=== PATIENT | female | born 1960 | race Caucasian/White ===

== ENCOUNTER 2017-08-17 09:56 | Observation (INO) | payer SELFPAY ==
--- NOTE | 2017-08-17 11:02 | C.PDOC ---
History Of Present Illness 56-year-old female, presents to the emergency department complaining of chest pain that started on 07/29. Patient states she had a few more episodes, and was seen by clinic, where they started workup. Pt returned today and clinic sent her to ED for further evaluation. Denies any shortness of breath, nausea/ vomiting, diarrhea, or any other associated symptoms. No other complaints at this time. Time Seen by Provider: 08/17/17 10:22 Chief Complaint (Nursing): Chest Pain History Per: Patient History/Exam Limitations: no limitations Onset/Duration Of Symptoms: Waxing/Waning Past Medical History Reviewed: Historical Data, Nursing Documentation, Vital Signs Vital Signs: Last Vital Signs Temp 97.6 F 08/17/17 16:15 Pulse 68 08/17/17 16:15 Resp 20 08/17/17 16:15 BP 101/65 08/17/17 16:15 Pulse Ox 96 08/17/17 16:15 Family History: States: No Known Family Hx - Social History Hx Alcohol Use: No Hx Substance Use: No - Immunization History Hx Tetanus Toxoid Vaccination: No Hx Influenza Vaccination: No Review Of Systems Constitutional: Negative for: Fever, Chills Cardiovascular: Positive for: Chest Pain. Negative for: Palpitations Respiratory: Negative for: Shortness of Breath Gastrointestinal: Negative for: Vomiting Musculoskeletal: Negative for: Neck Pain, Arm Pain, Back Pain Skin: Negative for: Rash Neurological: Negative for: Weakness, Numbness, Headache, Dizziness Physical Exam - Physical Exam Appears: Well, Non-toxic, No Acute Distress Skin: Normal Color, Warm, Dry, No Rash Head: Atraumatic, Normacephalic Eye(s): bilateral: Normal Inspection, PERRL, EOMI Nose: Normal Oral Mucosa: Moist Lips: Normal Appearing Neck: Normal ROM Cardiovascular: Rhythm Regular, No Murmur Respiratory: Normal Breath Sounds, No Accessory Muscle Use Gastrointestinal/Abdominal: Soft, No Tenderness Back: Normal Inspection Extremity: Normal ROM, No Deformity, No Swelling Neurological/Psych: Oriented x3, Normal Speech ED Course And Treatment - Laboratory Results Result Diagrams: 08/17/17 11:32 08/17/17 11:32 ECG: Interpreted By Me, Viewed By Me ECG Rhythm: Sinus Rhythm ECG Interpretation: No Acute Changes Rate From EC O2 Sat by Pulse Oximetry: 99 (RA) Pulse Ox Interpretation: Normal - Other Rad CXR X-Ray: Viewed By Me, Read By Radiologist Interpretation: Accession No. : [id number]. Patient Name / ID : RANDI MALDONADO / [id number]. Exam Date : 08/17/2017 11:10:25 ( Approved ). Study Comment : Sex / Age : F / 56Y. Creator : Laisha Gannon MD. Dictator : Laisha Gannon MD. Manager Media : Manager Filter : Laisha Gannon MD. Approver2 : Report Date : 08/17/2017 11:39:38. My Comment : . PROCEDURE: CHEST RADIOGRAPH, 1 VIEW. HISTORY: Chest pain. COMPARISON: None available. FINDINGS: LUNGS: The lungs are well inflated and clear. PLEURA: No pneumothorax or pleural fluid seen. CARDIOVASCULAR: Normal. OSSEOUS STRUCTURES: No significant abnormalities. VISUALIZED UPPER ABDOMEN: Normal. OTHER FINDINGS: None. IMPRESSION: No active pulmonary disease. Progress Note: Case was d/w who accepted patient to tele observation. Disposition - Disposition Disposition: HOSPITALIZED Disposition Time: 12:48 Condition: GOOD - Clinical Impression Clinical Impression: Chest pain - Scribe Statement The provider has reviewed the documentation as recorded by the Scribe (Violet Tse) All medical record entries made by the Scribe were at my direction and personally dictated by me. I have reviewed the chart and agree that the record accurately reflects my personal performance of the history, physical exam, medical decision making, and the department course for this patient. I have also personally directed, reviewed, and agree with the discharge instructions and disposition. Decision To Admit - Pt Status Changed To: Hospital Disposition Of: Observation - . Bed Request Type: Telemetry Admitting Physician: Kendall Pro Patient Diagnosis: Chest pain
[2017-08-17 11:37] LABS: BASO % 0.8 % (0.0-2.0); EOS # 0.1 K/uL (0.0-0.7); EOS % 1.3 % (0.0-4.0); HEMOGLOBIN 12.5 g/dL (11.0-16.0); LYMPH # 1.4 K/uL (1.0-4.3); LYMPH % 22.6 % (20.0-40.0); MEAN CELL VOLUME 79.7 fL (81.0-99.0); MEAN CORPUSCULAR HGB CONC 33.9 g/dL (33.0-37.0); MEAN PLATELET VOLUME 7.7 fL (7.2-11.7); MONO # 0.4 K/uL (0.0-0.8); MONO % 6.3 % (0.0-10.0); NEUT # 4.3 K/uL (1.8-7.0); RBC 4.65 Mil/uL (3.80-5.20); RED CELL DISTRIBUTION WIDTH 16.7 % (11.5-14.5); WHITE BLOOD COUNT 6.2 K/uL (4.8-10.8)
--- NOTE | 2017-08-17 11:41 | RAD ---
PROCEDURE: CHEST RADIOGRAPH, 1 VIEW HISTORY: Chest pain COMPARISON: None available. FINDINGS: LUNGS: The lungs are well inflated and clear. PLEURA: No pneumothorax or pleural fluid seen. CARDIOVASCULAR: Normal. OSSEOUS STRUCTURES: No significant abnormalities. VISUALIZED UPPER ABDOMEN: Normal. OTHER FINDINGS: None. IMPRESSION: No active pulmonary disease.
[2017-08-17 11:45] LABS: INR 1.2; PROTHROMBIN TIME 13.2 SECONDS (9.7-12.2)
[2017-08-17 11:46] LABS: SQUAMOUS EPITHIAL 3 /hpf (0-5); URINE BILIRUBIN NEGATIVE (NEGATIVE); URINE BLOOD 1+ (NEGATIVE); URINE CLARITY Clear (Clear); URINE COLOR Straw (YELLOW); URINE GLUCOSE (UA) NORMAL (Normal); URINE LEUKOCYTE ESTERASE 1+ Leu/uL (Negative); URINE PROTEIN NEGATIVE (NEGATIVE); URINE UROBILINOGEN NORMAL mg/dL (0.2-1.0)
[2017-08-17 11:50] LABS: ALB/GLOB RATIO 1.2 (1.0-2.1); ALBUMIN 4.2 g/dL (3.5-5.0); ALT/SGPT 30 U/L (9-52); AST/SGOT 23 U/L (14-36); BLOOD UREA NITROGEN 12 mg/dL (7-17); CALCIUM 9.1 mg/dl (8.6-10.4); GFR AFRICAN-AMERICAN > 60; GFR NON-AFRICAN AMERICAN > 60
[2017-08-17 12:01] LABS: CK-MB 0.89 ng/mL (0.0-3.38)
--- NOTE | 2017-08-17 13:26 | CP.PCM.HP ---
<Slime Yee - Last Filed: 08/17/17 14:09> History of Present Illness - History of Present Illness History of Present Illness: CC - "Chest pain" HPI - 56 year old female with a past medical history of cervical radiculopathy and hemorrhoids presents to the ED today complaining for chest pain. She went to her appointment this morning at the [facility] and was stated she had chest pain so she was sent up to the ED. This chest pain is like a "muscle pain" located in the center of her chest and started around 8AM this morning. She denies palpitations but admits to "muscle spasms". Does not radiate. It comes and goes. Patient has had this pain before. She rates it a 7/10. She feels this pain when she gets dressed in the morning or when she lifts boxes. The patient did not take any medications with this pain. She was given 325mg of PO aspirin in the ED. Patient denies associated N/V, diaphoresis, or shortness of breath. fever/chills, headaches, dizziness, changes in vision, abd pain, urinary complaints, abnormal bowel movements, leg edema. Of note the patient had MRI for cervical radiculopathy. Colonoscopy 2017 - hemorrhoids PAP - not since child Mammogram - 5 years ago PMHx - cervical radiculopathy, hemorrhoids Meds - Ibuprofen prn pain, multivitamin Allergies - ampicillin ? per EMR), pollen Surg - 2 C sections (27, and 28 years ago) no complications Famhx - one of dad's relatives had a stroke, mother diabetes, dad colon cancer, no fam hx of cardiac disease or OR Social - Denies tobacco/drug use, drinks occasionally. Lifts boxes and books for work. From [employer] weigh [employer] - menopause, 2 children PMD - Dr. Richmond, [facility] at [facility] Advanced Directives - none Proxy - Ricky Kwong (son) Code Status - Full code Present on Admission - Present on Admission Any Indicators Present on Admission: No Review of Systems - Constitutional Constitutional: absent: Chills, Fever - EENT Eyes: absent: Blurred Vision, Change in Vision - Cardiovascular Cardiovascular: Chest Pain. absent: Chest Pain at Rest, Irregular Heart Rhythm , Leg Edema, Palpitations, Pedal Edema, Syncope Additional comments: Pain reproduicble on palpation - Respiratory Respiratory: absent: Cough, Dyspnea, Dyspnea on Exertion - Gastrointestinal Gastrointestinal: Constipation. absent: Abdominal Pain, Diarrhea, Nausea, Vomiting - Genitourinary Genitourinary: absent: Change in Urinary Stream, Difficulty Urinating - Musculoskeletal Musculoskeletal: absent: Neck Pain, Numbness, Tingling Past Patient History - Past Social History Smoking Status: Never Smoked - PSYCHIATRIC Hx Substance Use: No - SURGICAL HISTORY Hx Surgeries: Yes Hx Section: Yes (x2) - ANESTHESIA Hx Anesthesia: No Hx Anesthesia Reactions: No Meds Allergies/Adverse Reactions: Allergies Allergy/AdvReac Type Severity Reaction Status Date / Time ampicillin Allergy RASH Verified 08/17/17 09:59 Physical Exam - Constitutional Appears: Non-toxic, No Acute Distress - Head Exam Head Exam: ATRAUMATIC, NORMAL INSPECTION - Eye Exam Eye Exam: EOMI, PERRL Pupil Exam: NORMAL ACCOMODATION - ENT Exam ENT Exam: Mucous Membranes Moist - Respiratory Exam Respiratory Exam: Clear to Auscultation Bilateral, NORMAL BREATHING PATTERN. absent: Accessory Muscle Use, Wheezes, Respiratory Distress - Cardiovascular Exam Cardiovascular Exam: REGULAR RHYTHM, +S1, +S2 Additional comments: pain reproducible on exam - GI/Abdominal Exam GI & Abdominal Exam: Normal Bowel Sounds, Soft. absent: Distended, Firm, Guarding, Tenderness - Extremities Exam Extremities exam: Positive for: normal inspection - Back Exam Back exam: NORMAL INSPECTION. absent: CVA tenderness (L), CVA tenderness (R), paraspinal tenderness - Neurological Exam Neurological exam: Alert, CN II-XII Intact, Normal Gait, Oriented x3 - Psychiatric Exam Psychiatric exam: Normal Affect, Normal Mood - Skin Skin Exam: Dry, Intact, Normal Color Results - Vital Signs Recent Vital Signs: Last Vital Signs Temp 97.9 F 08/17/17 09:57 Pulse 71 08/17/17 12:53 Resp 16 08/17/17 12:53 BP 104/45 L 08/17/17 12:53 Pulse Ox 98 08/17/17 12:53 - Labs Result Diagrams: 08/17/17 11:32 08/17/17 11:32 Labs: Laboratory Results - last 24 hr 08/17/17 08/17/17 08/17/17 11:32 11:32 11:32 WBC 6.2 RBC 4.65 Hgb 12.5 Hct 37.0 MCV 79.7 L MCH 27.0 MCHC 33.9 RDW 16.7 H Plt Count 306 MPV 7.7 Neut % (Auto) 69.0 Lymph % (Auto) 22.6 Vernon % (Auto) 6.3 Eos % (Auto) 1.3 Baso % (Auto) 0.8 Neut # (Auto) 4.3 Lymph # (Auto) 1.4 Vernon # (Auto) 0.4 Eos # (Auto) 0.1 Baso # (Auto) 0.0 PT 13.2 H INR 1.2 APTT 36 H Sodium 144 Potassium 4.0 Chloride 105 Carbon Dioxide 29 Anion Gap 14 BUN 12 Creatinine 0.7 Est GFR ( Amer) > 60 Est GFR (Non-Af Amer) > 60 Random Glucose 109 H Calcium 9.1 Total Bilirubin 0.4 AST 23 ALT 30 Alkaline Phosphatase 93 Total Creatine Kinase 86 CK-MB (Mass) 0.89 Troponin I < 0.0120 Total Protein 7.6 Albumin 4.2 Globulin 3.4 Albumin/Globulin Ratio 1.2 Urine Color Urine Clarity Urine pH Ur Specific [place] Urine Protein Urine Glucose (UA) Urine Ketones Urine Blood Urine Nitrate Urine Bilirubin Urine Urobilinogen Ur Leukocyte Esterase Urine WBC (Auto) Urine RBC (Auto) Ur Squamous Epith Cells 08/17/17 11:39 WBC RBC Hgb Hct MCV MCH MCHC RDW Plt Count MPV Neut % (Auto) Lymph % (Auto) Vernon % (Auto) Eos % (Auto) Baso % (Auto) Neut # (Auto) Lymph # (Auto) Vernon # (Auto) Eos # (Auto) Baso # (Auto) PT INR APTT Sodium Potassium Chloride Carbon Dioxide Anion Gap BUN Creatinine Est GFR ( Amer) Est GFR (Non-Af Amer) Random Glucose Calcium Total Bilirubin AST ALT Alkaline Phosphatase Total Creatine Kinase CK-MB (Mass) Troponin I Total Protein Albumin Globulin Albumin/Globulin Ratio Urine Color Straw Urine Clarity Clear Urine pH 7.0 Ur Specific [place] 1.005 Urine Protein Negative Urine Glucose (UA) Normal Urine Ketones Negative Urine Blood 1+ H Urine Nitrate Negative Urine Bilirubin Negative Urine Urobilinogen Normal Ur Leukocyte Esterase 1+ H Urine WBC (Auto) 5 Urine RBC (Auto) 1 Ur Squamous Epith Cells 3 Assessment & Plan - Assessment and Plan (Free Text) Assessment: Chest pain 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 First troponin negative, will trend 1 more with EKG EKG - NSR, no acute changes - normal f/u TSH/free T4 f/u echo -results to be followed outpatient Chest X ray - no cardiomegaly, no active disease Was given ASA 325 mg in ED Ibuprofen prn pain Cervical radiculopathy had MRI done Would rec PT outpatient Impaired glucose tolerance Hemoglobin HbA1c 6.3 Diet and lifestyle modifications Hyperlipidemia Diet and lifestyle modifications Prophylactic Measures SCDs GI - not indicated Multivitamin Hearth healthy/consistent carb diet Dispo -> Will discharge after second troponin/ekg/TSH after 5PM (if normal) <Kendall Pro - Last Filed: 08/17/17 22:18> Results - Vital Signs Recent Vital Signs: Last Vital Signs Temp 97.6 F 08/17/17 16:15 Pulse 68 08/17/17 16:15 Resp 20 08/17/17 16:15 BP 101/65 08/17/17 16:15 Pulse Ox 99 08/17/17 18:59 - Labs Result Diagrams: 08/17/17 11:32 08/17/17 11:32 Labs: Laboratory Results - last 24 hr 08/17/17 08/17/17 08/17/17 11:32 11:32 11:32 WBC 6.2 RBC 4.65 Hgb 12.5 Hct 37.0 MCV 79.7 L MCH 27.0 MCHC 33.9 RDW 16.7 H Plt Count 306 MPV 7.7 Neut % (Auto) 69.0 Lymph % (Auto) 22.6 Vernon % (Auto) 6.3 Eos % (Auto) 1.3 Baso % (Auto) 0.8 Neut # (Auto) 4.3 Lymph # (Auto) 1.4 Vernon # (Auto) 0.4 Eos # (Auto) 0.1 Baso # (Auto) 0.0 PT 13.2 H INR 1.2 APTT 36 H Sodium 144 Potassium 4.0 Chloride 105 Carbon Dioxide 29 Anion Gap 14 BUN 12 Creatinine 0.7 Est GFR ( Amer) > 60 Est GFR (Non-Af Amer) > 60 Random Glucose 109 H Calcium 9.1 Total Bilirubin 0.4 AST 23 ALT 30 Alkaline Phosphatase 93 Total Creatine Kinase 86 CK-MB (Mass) 0.89 Troponin I < 0.0120 Total Protein 7.6 Albumin 4.2 Globulin 3.4 Albumin/Globulin Ratio 1.2 25-OH Vitamin D Total Free T4 TSH 3rd Generation Urine Color Urine Clarity Urine pH Ur Specific [place] Urine Protein Urine Glucose (UA) Urine Ketones Urine Blood Urine Nitrate Urine Bilirubin Urine Urobilinogen Ur Leukocyte Esterase Urine WBC (Auto) Urine RBC (Auto) Ur Squamous Epith Cells 08/17/17 08/17/17 08/17/17 11:39 17:02 17:02 WBC RBC Hgb Hct MCV MCH MCHC RDW Plt Count MPV Neut % (Auto) Lymph % (Auto) [place] % (Auto) Eos % (Auto) Baso % (Auto) Neut # (Auto) Lymph # (Auto) Vernon # (Auto) Eos # (Auto) Baso # (Auto) PT INR APTT Sodium Potassium Chloride Carbon Dioxide Anion Gap BUN Creatinine Est GFR ( Amer) Est GFR (Non-Af Amer) Random Glucose Calcium Total Bilirubin AST ALT Alkaline Phosphatase Total Creatine Kinase 65 CK-MB (Mass) 0.62 Troponin I < 0.0120 Total Protein Albumin Globulin Albumin/Globulin Ratio 25-OH Vitamin D Total Free T4 1.15 TSH 3rd Generation 1.73 Urine Color Straw Urine Clarity Clear Urine pH 7.0 Ur Specific [place] 1.005 Urine Protein Negative Urine Glucose (UA) Normal Urine Ketones Negative Urine Blood 1+ H Urine Nitrate Negative Urine Bilirubin Negative Urine Urobilinogen Normal Ur Leukocyte Esterase 1+ H Urine WBC (Auto) 5 Urine RBC (Auto) 1 Ur Squamous Epith Cells 3 08/17/17 17:02 WBC RBC Hgb Hct MCV MCH MCHC RDW Plt Count MPV Neut % (Auto) Lymph % (Auto) [place] % (Auto) Eos % (Auto) Baso % (Auto) Neut # (Auto) Lymph # (Auto) [place] # (Auto) Eos # (Auto) Baso # (Auto) PT INR APTT Sodium Potassium Chloride Carbon Dioxide Anion Gap BUN Creatinine Est GFR ( Amer) Est GFR (Non-Af Amer) Random Glucose Calcium Total Bilirubin AST ALT Alkaline Phosphatase Total Creatine Kinase CK-MB (Mass) Troponin I Total Protein Albumin Globulin Albumin/Globulin Ratio 25-OH Vitamin D Total 21.5 L Free T4 TSH 3rd Generation Urine Color Urine Clarity Urine pH Ur Specific [place] Urine Protein Urine Glucose (UA) Urine Ketones Urine Blood Urine Nitrate Urine Bilirubin Urine Urobilinogen Ur Leukocyte Esterase Urine WBC (Auto) Urine RBC (Auto) Ur Squamous Epith Cells Attending/Attestation - Attestation I have personally seen and examined this patient.: Yes I have fully participated in the care of the patient.: Yes I have reviewed all pertinent clinical information: Yes Notes (Text): 08/17/17 22:18 Patient was seen and examined after she was brought up to Room 652 A History, Physical, Assessment and Plan were gone over with resident Dr. Alex Pro D.O.
[2017-08-17 14:23] VITALS: RESP 20
--- NOTE | 2017-08-17 14:24 | CP.PCM.DIS ---
<Slime Yee - Last Filed: 08/17/17 14:17> Provider - Provider Date of Admission: 08/17/17 12:38 Attending physician: Kendall Pro MD Primary care physician: Dr. Richmond - [facility] Consults: none Time Spent in preparation of Discharge (in minutes): 35 Diagnosis - Discharge Diagnosis (1) Cervical radicular pain Status: Acute (2) Hemorrhoid Status: Acute Hospital Course - Lab Results Lab Results: Most Recent Lab Values WBC 6.2 K/uL (4.8-10.8) 08/17/17 11:32 RBC 4.65 Mil/uL (3.80-5.20) 08/17/17 11:32 Hgb 12.5 g/dL (11.0-16.0) 08/17/17 11:32 Hct 37.0 % (34.0-47.0) 08/17/17 11:32 MCV 79.7 fL (81.0-99.0) L 08/17/17 11:32 MCH 27.0 pg (27.0-31.0) 08/17/17 11:32 MCHC 33.9 g/dL (33.0-37.0) 08/17/17 11:32 RDW 16.7 % (11.5-14.5) H 08/17/17 11:32 Plt Count 306 K/uL (130-400) 08/17/17 11:32 MPV 7.7 fL (7.2-11.7) 08/17/17 11:32 Neut % (Auto) 69.0 % (50.0-75.0) 08/17/17 11:32 Lymph % (Auto) 22.6 % (20.0-40.0) 08/17/17 11:32 [place] % (Auto) 6.3 % (0.0-10.0) 08/17/17 11:32 Eos % (Auto) 1.3 % (0.0-4.0) 08/17/17 11:32 Baso % (Auto) 0.8 % (0.0-2.0) 08/17/17 11:32 Neut # (Auto) 4.3 K/uL (1.8-7.0) 08/17/17 11:32 Lymph # (Auto) 1.4 K/uL (1.0-4.3) 08/17/17 11:32 [place] # (Auto) 0.4 K/uL (0.0-0.8) 08/17/17 11:32 Eos # (Auto) 0.1 K/uL (0.0-0.7) 08/17/17 11:32 Baso # (Auto) 0.0 K/uL (0.0-0.2) 08/17/17 11:32 PT 13.2 SECONDS (9.7-12.2) H 08/17/17 11:32 INR 1.2 08/17/17 11:32 APTT 36 SECONDS (21-34) H 08/17/17 11:32 Sodium 144 mmol/L (132-148) 08/17/17 11:32 Potassium 4.0 mmol/L (3.6-5.2) 08/17/17 11:32 Chloride 105 mmol/L (98-107) 08/17/17 11:32 Carbon Dioxide 29 mmol/L (22-30) 08/17/17 11:32 Anion Gap 14 (10-20) 08/17/17 11:32 BUN 12 mg/dL (7-17) 08/17/17 11:32 Creatinine 0.7 mg/dL (0.7-1.2) 08/17/17 11:32 Est GFR ( Amer) > 60 08/17/17 11:32 Est GFR (Non-Af Amer) > 60 08/17/17 11:32 Random Glucose 109 mg/dL (65-105) H 08/17/17 11:32 Calcium 9.1 mg/dl (8.6-10.4) 08/17/17 11:32 Total Bilirubin 0.4 mg/dL (0.2-1.3) 08/17/17 11:32 AST 23 U/L (14-36) 08/17/17 11:32 ALT 30 U/L (9-52) 08/17/17 11:32 Alkaline Phosphatase 93 U/L (38-126) 08/17/17 11:32 Total Creatine Kinase 86 U/L (30-135) 08/17/17 11:32 CK-MB (Mass) 0.89 ng/mL (0.0-3.38) 08/17/17 11:32 Troponin I < 0.0120 ng/mL (0.00-0.120) 08/17/17 11:32 Total Protein 7.6 g/dL (6.3-8.3) 08/17/17 11:32 Albumin 4.2 g/dL (3.5-5.0) 08/17/17 11:32 Globulin 3.4 gm/dL (2.2-3.9) 08/17/17 11:32 Albumin/Globulin Ratio 1.2 (1.0-2.1) 08/17/17 11:32 Urine Color Straw (YELLOW) 08/17/17 11:39 Urine Clarity Clear (Clear) 08/17/17 11:39 Urine pH 7.0 (5.0-8.0) 08/17/17 11:39 Ur Specific [place] 1.005 (1.003-1.030) 08/17/17 11:39 Urine Protein Negative mg/dL (NEGATIVE) 08/17/17 11:39 Urine Glucose (UA) Normal mg/dL (Normal) 08/17/17 11:39 Urine Ketones Negative mg/dL (NEGATIVE) 08/17/17 11:39 Urine Blood 1+ (NEGATIVE) H 08/17/17 11:39 Urine Nitrate Negative (NEGATIVE) 08/17/17 11:39 Urine Bilirubin Negative (NEGATIVE) 08/17/17 11:39 Urine Urobilinogen Normal mg/dL (0.2-1.0) 08/17/17 11:39 Ur Leukocyte Esterase 1+ Lui/uL (Negative) H 08/17/17 11:39 Urine WBC (Auto) 5 /hpf (0-5) 08/17/17 11:39 Urine RBC (Auto) 1 /hpf (0-3) 08/17/17 11:39 Ur Squamous Epith Cells 3 /hpf (0-5) 08/17/17 11:39 - Hospital Course Hospital Course: PMHx - cervical radiculopathy, hemorrhoids Meds - Ibuprofen prn pain, multivitamin Allergies - ampicillin ? per EMR), pollen Surg - 2 C sections (26, and 28 years ago) no complications Famhx - one of dad's relatives had a stroke, mother diabetes, dad colon cancer, no fam hx of cardiac disease or ID Social - Denies tobacco/drug use, drinks occasionally. Lifts boxes and books for work. From [employer] - menopause, 2 children PMD - Dr. Richmond, [facility] at [facility] Colonoscopy 2017 - hemorrhoids PAP - not since child Mammogram - 5 years ago Advanced Directives - none Proxy - Ricky Kwong (son) Code Status - Full code On admission: 56 year old female with a past medical history of cervical radiculopathy and hemorrhoids presents to the ED today complaining for chest pain. She went to her appointment this morning at the [facility] and was stated she had chest pain so she was sent up to the ED. This chest pain is like a "muscle pain" located in the center of her chest and started around 8AM this morning. She denies palpitations but admits to "muscle spasms". Does not radiate. It comes and goes. Patient has had this pain before. She rates it a 7/10. She feels this pain when she gets dressed in the morning or when she lifts boxes. The patient did not take any medications with this pain. She was given 325mg of PO aspirin in the ED. Patient denies associated N/V, diaphoresis, or shortness of breath. fever/chills, headaches, dizziness, changes in vision, abd pain, urinary complaints, abnormal bowel movements, leg edema. During hospital stay: Patient was given 325mg PO asa in the ED. Pain sounds more like muscular in nature and patient does not have an risk factors (except fo being female over 50) for cardiac event. Troponins were negative x 2. Ekgs were normal. Please see assessments as listed below: Chest pain 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 Ibuprofen prn pain Trop negative x 1 TSH wnl Cervical radiculopathy had MRI done Would rec PT outpatient Impaired glucose tolerance Hemoglobin HbA1c 6.3 Diet and lifestyle modifications Hyperlipidemia Diet and lifestyle modifications Prophylactic Measures SCDs GI - not indicated Multivitamin Hearth healthy/consistent carb diet Patient is stable for discharge home. She is to return to the [facility] for follow up post discharge. She is to request physical therapy referral for her cervical radiculopathy. She is to reduce her intake of sugary and fatty foods to help improve her HbA1c and cholesterol levels. Patient is to continue taking multivitamin daily and Ibuprofen as needed for muscle pain. All instructions explained to the patient and she agrees. Discharge Exam - Head Exam Head Exam: ATRAUMATIC, NORMAL INSPECTION - Eye Exam Eye Exam: EOMI, PERRL Pupil Exam: NORMAL ACCOMODATION - Respiratory Exam Respiratory Exam: NORMAL BREATHING PATTERN - Cardiovascular Exam Cardiovascular Exam: REGULAR RHYTHM, +S1, +S2 Additional comments: pain reproducible on exam - GI/Abdominal Exam GI & Abdominal Exam: Normal Bowel Sounds, Soft. absent: Distended, Firm, Guarding, Tenderness - Extremities Exam Extremities exam: normal inspection - Back Exam Back exam: NORMAL INSPECTION. absent: CVA tenderness (L), CVA tenderness (R), paraspinal tenderness - Neurological Exam Neurological exam: Alert, CN II-XII Intact, Normal Gait, Oriented x3, Reflexes Normal - Psychiatric Exam Psychiatric exam: Normal Affect, Normal Mood - Skin Skin Exam: Intact, Normal Color Discharge Plan - Follow Up Plan Condition: GOOD Disposition: HOME/ ROUTINE Instructions: Type 2 Diabetes, Heart Healthy Diet, Diabetes Exchange Diet, Carbohydrate Counting Diet, Diabetes Diet , Chest Pain (DC) Additional Instructions: Patient is stable for discharge home. She is to return to the [facility] for follow up post discharge. She is to request physical therapy referral for her cervical radiculopathy. She is to reduce her intake of sugary and fatty foods to help improve her HbA1c and cholesterol levels. Patient is to continue taking multivitamin daily and Ibuprofen as needed for muscle pain. All instructions explained to the patient and she agrees. Referrals: [facility] at [facility] [Outside] <Kendall Pro - Last Filed: 08/17/17 22:20> Provider - Provider Date of Admission: 08/17/17 12:38 Attending physician: Kendall Pro MD Time Spent in preparation of Discharge (in minutes): 40 Hospital Course - Lab Results Lab Results: Most Recent Lab Values WBC 6.2 K/uL (4.8-10.8) 08/17/17 11:32 RBC 4.65 Mil/uL (3.80-5.20) 08/17/17 11:32 Hgb 12.5 g/dL (11.0-16.0) 08/17/17 11:32 Hct 37.0 % (34.0-47.0) 08/17/17 11:32 MCV 79.7 fL (81.0-99.0) L 08/17/17 11:32 MCH 27.0 pg (27.0-31.0) 08/17/17 11:32 MCHC 33.9 g/dL (33.0-37.0) 08/17/17 11:32 RDW 16.7 % (11.5-14.5) H 08/17/17 11:32 Plt Count 306 K/uL (130-400) 08/17/17 11:32 MPV 7.7 fL (7.2-11.7) 08/17/17 11:32 Neut % (Auto) 69.0 % (50.0-75.0) 08/17/17 11:32 Lymph % (Auto) 22.6 % (20.0-40.0) 08/17/17 11:32 [place] % (Auto) 6.3 % (0.0-10.0) 08/17/17 11:32 Eos % (Auto) 1.3 % (0.0-4.0) 08/17/17 11:32 Baso % (Auto) 0.8 % (0.0-2.0) 08/17/17 11:32 Neut # (Auto) 4.3 K/uL (1.8-7.0) 08/17/17 11:32 Lymph # (Auto) 1.4 K/uL (1.0-4.3) 08/17/17 11:32 [place] # (Auto) 0.4 K/uL (0.0-0.8) 08/17/17 11:32 Eos # (Auto) 0.1 K/uL (0.0-0.7) 08/17/17 11:32 Baso # (Auto) 0.0 K/uL (0.0-0.2) 08/17/17 11:32 PT 13.2 SECONDS (9.7-12.2) H 08/17/17 11:32 INR 1.2 08/17/17 11:32 APTT 36 SECONDS (21-34) H 08/17/17 11:32 Sodium 144 mmol/L (132-148) 08/17/17 11:32 Potassium 4.0 mmol/L (3.6-5.2) 08/17/17 11:32 Chloride 105 mmol/L (98-107) 08/17/17 11:32 Carbon Dioxide 29 mmol/L (22-30) 08/17/17 11:32 Anion Gap 14 (10-20) 08/17/17 11:32 BUN 12 mg/dL (7-17) 08/17/17 11:32 Creatinine 0.7 mg/dL (0.7-1.2) 08/17/17 11:32 Est GFR ( Amer) > 60 08/17/17 11:32 Est GFR (Non-Af Amer) > 60 08/17/17 11:32 Random Glucose 109 mg/dL (65-105) H 08/17/17 11:32 Calcium 9.1 mg/dl (8.6-10.4) 08/17/17 11:32 Total Bilirubin 0.4 mg/dL (0.2-1.3) 08/17/17 11:32 AST 23 U/L (14-36) 08/17/17 11:32 ALT 30 U/L (9-52) 08/17/17 11:32 Alkaline Phosphatase 93 U/L (38-126) 08/17/17 11:32 Total Creatine Kinase 65 U/L (30-135) 08/17/17 17:02 CK-MB (Mass) 0.62 ng/mL (0.0-3.38) 08/17/17 17:02 Troponin I < 0.0120 ng/mL (0.00-0.120) 08/17/17 17:02 Total Protein 7.6 g/dL (6.3-8.3) 08/17/17 11:32 Albumin 4.2 g/dL (3.5-5.0) 08/17/17 11:32 Globulin 3.4 gm/dL (2.2-3.9) 08/17/17 11:32 Albumin/Globulin Ratio 1.2 (1.0-2.1) 08/17/17 11:32 25-OH Vitamin D Total 21.5 NG/ML (30.0-100.0) L 08/17/17 17:02 Free T4 1.15 ng/dL (0.78-2.19) 08/17/17 17:02 TSH 3rd Generation 1.73 mIU/L (0.46-4.68) 08/17/17 17:02 Urine Color Straw (YELLOW) 08/17/17 11:39 Urine Clarity Clear (Clear) 08/17/17 11:39 Urine pH 7.0 (5.0-8.0) 08/17/17 11:39 Ur Specific [place] 1.005 (1.003-1.030) 08/17/17 11:39 Urine Protein Negative mg/dL (NEGATIVE) 08/17/17 11:39 Urine Glucose (UA) Normal mg/dL (Normal) 08/17/17 11:39 Urine Ketones Negative mg/dL (NEGATIVE) 08/17/17 11:39 Urine Blood 1+ (NEGATIVE) H 08/17/17 11:39 Urine Nitrate Negative (NEGATIVE) 08/17/17 11:39 Urine Bilirubin Negative (NEGATIVE) 08/17/17 11:39 Urine Urobilinogen Normal mg/dL (0.2-1.0) 08/17/17 11:39 Ur Leukocyte Esterase 1+ Lui/uL (Negative) H 08/17/17 11:39 Urine WBC (Auto) 5 /hpf (0-5) 08/17/17 11:39 Urine RBC (Auto) 1 /hpf (0-3) 08/17/17 11:39 Ur Squamous Epith Cells 3 /hpf (0-5) 08/17/17 11:39 Attending/Attestation - Attestation I have personally seen and examined this patient.: Yes I have fully participated in the care of the patient.: Yes I have reviewed all pertinent clinical information, including history, physical exam and plan: Yes Notes (Text): 08/17/17 22:19 Patient was also provided with note for work and that she should not lift anything heavy for 4 weeks to help reduce the pectoralis muscle strain. Kendall Pro D.O.
[2017-08-17 16:16] VITALS: BP 101/65; PULSE 68; TEMP 97.6
[2017-08-17 17:39] LABS: CK-MB 0.62 ng/mL (0.0-3.38)
[2017-08-17 18:59] VITALS: O2SAT 99
--- NOTE | 2017-08-18 17:14 | CARD ---
APPROVED REPORT EKG Measurement Heart [id number] CO [id number] <Conclusion> Normal sinus rhythm with sinus arrhythmia Normal ECG
--- NOTE | 2017-08-18 17:19 | CARD ---
APPROVED REPORT EKG Measurement Heart [id number] HI [id number] <Conclusion> Normal sinus rhythm Normal ECG
== END 2017-08-17 18:45 | disposition home or self-care (01) ==
LOC: C.ER 09:56 → C.9E 12:38 → C.6T 13:19
PROVIDERS: ADMIT Family Medicine; ATTEND Family Medicine
DX: M54.12 Radiculopathy, cervical region (principal); E78.5 Hyperlipidemia, unspecified; K64.9 Unspecified hemorrhoids; Z79.82 Long term (current) use of aspirin; Z80.0 Family history of malignant neoplasm of digestive organs; Z82.3 Family history of stroke; Z83.3 Family history of diabetes mellitus
CPT/HCPCS: 71045; 80053; 81001; 82306; 82550; 82553; 84439; 84443; 84484; 85025; 85610; 85730; G0378